=== PATIENT | female | born 1945 | race Caucasian/White ===

== ENCOUNTER 2017-08-26 20:59 | Emergency (ER) | payer MEDICARE, SELFPAY ==
[2017-08-26 21:01] VITALS: BP 150/88; PULSE 114; RESP 16; TEMP 36.6; O2SAT 92; BMI 36.2
[2017-08-26 21:12] VITALS: O2SAT 91
--- NOTE | 2017-08-26 21:30 | RAD_ITS ---
STUDY: X-RAY CHEST REASON FOR EXAM: Female, 72 years old. Cough shortness of breath TECHNIQUE: PA and lateral views of the chest. COMPARISON: None. FINDINGS: The upper lung zones appear hyperlucent. There is no demonstrated pleural abnormality. Normal size heart. Normal mediastinum and kristina. Normal visualized pulmonary arteries. Normal visualized aortic arch and descending thoracic aorta. There is demineralization of the osseous structures. Normal visualized ribs, clavicles, and shoulders. There is no demonstrated abnormality of the visualized soft tissue structures of the upper abdomen. RAD/Chest PA and Lateral IMPRESSION: Nonspecific hyperinflation of the lungs cannot exclude emphysematous change. No evidence of acute focal infiltrate. Electronically Signed: Katie Haywood MD at 21:53 EDT Tel , Service support ,
[2017-08-26] MEDS: Ipratropium/Albuterol Sulfate 3 ML AMPUL.NEB INHALATION (21:41)
--- NOTE | 2017-08-26 22:14 | ED.VISSUMM ---
- ER Visit Summary Date of Service: 08/26/17 Chief Complaint: Cough History of Present Illness: The patient is a 72 F with a cough for about a week. Patient is producing sputum. She denies any history of COPD but does report a history of asthma. She is a non-smoker. She has been trying albuterol with minimal relief. No chest pain. No significant shortness of breath. No history of heart disease or PE. Physical Examination: Afebrile and vital signs unremarkable except for heart rate of 114. She is sitting comfortably. Speaking comfortably. No acute distress. Heart slightly tachycardic. Wheezing in all [place]. Abdomen soft. Skin, calves, pulses unremarkable. Test Results: X-ray was unremarkable. It showed chronic changes. Emergency Department Course and Treatment: Patient's symptoms and exam improved after 1 dose of DuoNeb. After discussion with the patient, we will prescribe a course of prednisone, albuterol, and doxycycline. She should return for any new or worsening issues. Treatment Plan: As above Disposition: Discharged Impression: 1. Acute bronchitis This note was generated with Ygle dictation software. It may contain incorrect words, spelling, and punctuation that were not noted in review of the chart prior to signing ED Disposition - Plan for ED Patient: Chief Complaint: Cough Referrals: Abril Al MD [Primary Care Provider] -
--- NOTE | 2017-08-26 22:17 | ED.DEP ---
ED Disposition - Plan for ED Patient: Chief Complaint: Cough Instructions: ED Bronchitis Asthmatic Prescriptions: Albuterol Inhaler [Ventolin Hfa] 1 - 2 puff INHALATION Q4H PRN PRN #1 inhaler PRN Reason: Wheezing Prednisone [Deltasone] 40 mg PO DAILY #10 tab Doxycycline Monohydrate 100 mg PO BID #20 cap Referrals: Abril Al MD [Primary Care Provider] -
[2017-08-26 22:36] VITALS: BP 144/78; PULSE 84; RESP 22; O2SAT 92
[2017-08-26] MEDS: predniSONE 20 MG Tablet 40 MG PO (22:40)
[2017-08-26] MEDS: Doxycycline 100 MG CAPSULE PO (22:40)
--- NOTE | 2017-08-27 14:54 | CM.ED ---
ED CALLBACK: Follow-up call placed to patient. No answer and no voicemail option.
== END 2017-08-26 22:40 | disposition home or self-care (01) ==
LOC: ED 21:33
PROVIDERS: Emergency Provider Emergency Medicine; Family Provider Internal Medicine; PCP Internal Medicine
DX: J20.9 Acute bronchitis, unspecified (principal); J45.909 Unspecified asthma, uncomplicated; M19.90 Unspecified osteoarthritis, unspecified site; Z79.899 Other long term (current) drug therapy
CPT/HCPCS: 71046; 99283

== ENCOUNTER 2024-07-29 20:46 | Emergency (ER) | payer MEDICARE, SELFPAY ==
[2024-07-29 20:47] VITALS: BP 141/88; PULSE 100; RESP 18; TEMP 36.6; O2SAT 97; BMI 35.6
--- NOTE | 2024-07-29 22:11 | ED.VIS.LOWEX ---
HPI History of Present Illness Chief Complaint: Lower Extremity Injury Informant: patient Narrative Narrative: Patient 79-year-old female presenting with injury to her right second toenail. Patient has very long and overgrown toenails. She states yesterday around 10:30 AM her second toenail became snagged/stubbed on the carpet and she injured it. She did have bleeding at the base of the toenail. She applied Betadine to the area. She [facility] and they recommend she come to the ER to be evaluated for nailbed damage. Patient notes in the past she seen Dr. Rodriguez but it has been years. She reports that she has not really taken care of her toenails since the COVID pandemic. She is not on any blood thinners. She states the pain has resolved today and now feels more itchy. No other complaints or concerns reported at this time. [facility] Medical History Asthma Arthritis Home Medications ?Medication ?Instructions ?Recorded ?Last Taken ?Type albuterol sulfate 2.5 mg/3 mL 2.5 mg inhalation Q4H PRN PRN 18 08/26/17 History (0.083 %) solution for nebulization Wheezing albuterol sulfate 90 mcg/actuation 1 - 2 puff inhalation Q4H PRN PRN 08/26/17 Unknown Rx aerosol inhaler Wheezing ##1 amoxicillin 500 mg tablet 500 mg PO BID #6 tabs 07/29/24 Unknown Rx Allergy/AdvReac Type Severity Reaction Status Date / Time aspirin (ASA) Allergy Shortness Verified 07/29/24 20:50 of breath montelukast (From Singulair) Allergy Other Verified 07/29/24 20:50 NSAIDS (Non-Steroidal Allergy Shortness Verified 07/29/24 20:50 Anti-Inflamma of breath Social History Smoking Status: Former smoker ROS ROS ED Constitutional Constitutional ED: Denies chills or fever(s) Musculoskeletal Musculoskeletal: Denies arthralgias or myalgias Integumentary Reports other Details: injury to right 2nd toe nail Neurologic Neurologic: Denies paresthesias or weakness Hematologic/Lymphatic Hematologic/Lymphatic: Denies easy bleeding or easy bruising EXAM Physical Exam Const Vital Signs: 07/29/24 20:47 07/30/24 00:06 Temperature 97.9 F 97.6 F L Temperature Source Temporal Pulse Rate 100 93 Respiratory Rate 18 18 Blood Pressure 141/88 H 136/72 H Blood Pressure Mean 105 93 Pulse Ox 97 96 Oxygen Delivery Method Room Air Positive well nourished and well developed General Appearance ED: well developed and NAD Chest Wall inspection of chest normal Resp normal respiratory effort and clear to auscultation bilaterally Cardio regular rate and regular rhythm Cardio Narrative: 2+ DP pulse Extremity normal to inspection and full ROM Extremity Narrative: Normal range of motion of the toes of the right foot. No deformity. No bony pinpoint tenderness present. Neuro oriented x3 Sensorium / Orientation: alert Motor Exam: Negative for general weakness Psych mental status grossly normal Skin Skin Narrative: Patient has severely overgrown and thickened 1st toenail that is spiraling and actually resting on her second toe base. On the second toenail there is what appears to be an avulsion injury of the nail with exposure of the base of the toenail outside of the skin. There is dried blood around it. No active bleeding. The nail appears to be loose. The nail itself is thickened and overgrown. On the right foot no other injury or abnormality of the skin or nails MDM MDM MDM Narrative Medical decision making narrative: Patient evaluated for injury to the right second toenail that occurred yesterday (greater than 24 hours ago). It appears that the nail has been partially avulsed and the proximal aspect is outside of the nailbed. Will remove the nail fully. She does not have any obvious bony injury and I do not think she requires an x-ray. Toe is soaked, digital nerve block using 1% lidocaine performed. Once patient had adequate analgesia the nail was fully removed. Patient tolerated procedure well with no blood loss. There does not appear to be an underlying nailbed injury. As the nails been out for greater than 24 hours I think the risk of trying to insert in the back into the nail fold outweighs the benefits at this time. Patient does report a history of rheumatic fever and valvular disease so we will place her on prophylactic amoxicillin per her request. Patient is given referral to podiatry. Given wound care instructions. Bacitracin and localized dressing applied. Counseled that her nail may or may not regrow normally. Discharged home in stable condition. Discharge Plan Triage Chief Complaint: Lower Extremity Injury ED Provider: Abby Cristobal Dx/Rx/DC Orders Clinical Impression: Nail avulsion, toe Instructions: ED Detached Fingernail or Toenail Prescriptions: New amoxicillin 500 mg tablet 500 mg PO BID Qty: 6 0RF No Action albuterol sulfate 2.5 MG/3 ML solution for nebulization 2.5 mg inhalation Q4H PRN PRN (Reason: Wheezing) albuterol sulfate 1 INHALER inhaler 1 - 2 puff INHALATION Q4H PRN PRN (Reason: Wheezing) Qty: 1 0RF Primary Care Provider: Abril Al Referrals: Chester Calderon DPM [Med Staff - Active Staff] - Abril Al MD [[facility]] - Print Language: Romansh Disposition Disposition: Home, Self Care Discharge Date/Time: 07/30/24 00:07
[2024-07-29] MEDS: Acetaminophen 325 MG Tablet 650 MG PO (22:31)
[2024-07-29] MEDS: Lidocaine 1% (20 ml mdv) 20 ML Vial INFILT (22:52)
[2024-07-30 00:06] VITALS: BP 136/72; PULSE 93; RESP 18; TEMP 36.4; O2SAT 96
== END 2024-07-30 00:07 | disposition home or self-care (01) ==
PROVIDERS: Emergency Provider Emergency Medicine; PCP Internal Medicine; Referring Provider Emergency Medicine; Visit Provider Emergency Medicine
DX: S91.104A Unspecified open wound of right lesser toe(s) without damage to nail, initial encounter (principal); J45.909 Unspecified asthma, uncomplicated; Z79.51 Long term (current) use of inhaled steroids; Z87.891 Personal history of nicotine dependence; X58.XXXA Exposure to other specified factors, initial encounter
CPT/HCPCS: 99282